=== PATIENT | male | born 1935 | race Caucasian/White ===

== ENCOUNTER 2018-04-09 04:31 | Emergency (ER) | payer OTHER, MEDICARE ==
[~2018-04-09] VITALS: Ht 172.7 cm; Wt 70.3 kg
[~2018-04-09 04:31] MED LIST: METANX; METF850T2 PO; SIMV5TAB53 PO
[2018-04-09 04:50] VITALS: BP_SYST 155
--- NOTE | 2018-04-09 04:50 | NUR ---
Pt placed to ER bed 05 via W/C, to gown and classroom monitor. Pt states that while using the restroom, he felt unsteady with generalized weakness. Pt states "it looked like the lights flickered for a bit." Pt states he got back into bed, then got up to take his B/P whick was 161/102. Pt states that he wants to get checked out.
--- NOTE | 2018-04-09 05:15 | NUR ---
Dr. Miner at bedside.
[2018-04-09] MEDS ORDERED: ASA81 PO (05:16)
[2018-04-09] MEDS ORDERED: METF-510 PO (05:16)
[2018-04-09] MEDS ORDERED: LEVO75TA7 PO (05:16)
[2018-04-09] MEDS ORDERED: SIMV10TA2 PO (05:16)
--- NOTE | 2018-04-09 05:35 | NUR ---
# 20 gauge angiocath placed to LAC. Use of asceptic technique. Opsite placed over site. Blood return noted. Blood for lab drawn from site. Flushed with 10 cc of normal saline. No evidence of infiltration noted. Patient tolerated well.
[2018-04-09] MEDS ORDERED: NACL 0.9% 1,000 ML IV ONE (05:45)
[2018-04-09 06:14] LABS: ANION GAP 4 (5-15); CALCIUM 9.8 mg/dL (8.4-11.0); CHLORIDE 105 mmol/L (98-107); GLUCOSE 160 mg/dL (70-99); POTASSIUM 4.1 mmol/L (3.5-5.1); SODIUM SERUM 138 mmol/L (136-145); UREA NITROGEN, BLOOD 18 mg/dL (8-21)
--- NOTE | 2018-04-09 06:20 | NUR ---
Pt to CT via stretcher.
[2018-04-09 06:24] LABS: BASOPHILS % (AUTO) 0.3 % (0.0-2.0); EOSINOPHILS # (AUTO) 0.3 K/uL (0.0-0.4); EOSINOPHILS % (AUTO) 4.3 % (0.0-4.0); LYMPHOCYTES % (AUTO) 17.2 % (20.5-51.5); MONOCYTES # (AUTO) 0.6 K/uL (0.0-1.0); MONOCYTES % (AUTO) 10.6 % (1.7-9.3); NEUTROPHILS % (AUTO) 67.6 % (40.0-70.0); RED CELL DISTRIBUTION WIDTH 13.8 % (9.0-15.0); WHITE BLOOD COUNT (AUTO) 5.9 K/uL (4.8-10.8)
[2018-04-09 06:29] LABS: ALANINE AMINOTRANSFERASE 23 U/L (12-78); ALBUMIN 3.6 g/dL (3.4-4.8); ASPARTATE AMINOTRANSFERASE 17 U/L (10-37); THYROID STIMULATING HORMONE 15.54 uIu/mL (0.36-3.74); TOTAL BILIRUBIN 0.6 mg/dL (0.0-1.0)
--- NOTE | 2018-04-09 06:40 | NUR ---
Pt returns from CT. Denies c/o pain or discomfort, no needs verbalized.
[2018-04-09 06:42] LABS: HEMATOCRIT 42.1 % (36-54); HEMOGLOBIN 13.4 g/dL (14.0-18.0); MEAN CORPUSCULAR VOLUME 88 fL (79.0-98.0); RED BLOOD CELL COUNT(AUTO) 4.79 MIL/uL (4.2-6.2)
[2018-04-09 06:43] LABS: MEAN CORPUSCULAR HEMOGLOBIN 28 pg (27-31); MEAN CORPUSCULAR HGB CONC 32 % (32-36); PLATELET COUNT (AUTO) 181 K/uL (130-430)
--- NOTE | 2018-04-09 07:21 | NUR ---
report given, patient resting in stable condition.
[2018-04-09 08:10] VITALS: BP_SYST 130
--- NOTE | 2018-04-09 08:10 | NUR ---
Patient given written and verbal discharge instructions and verbalizes understanding. ER MD discussed with patient the results and treatment provided. Patient in stable condition. ID arm band removed. IV catheter removed intact and dressing applied, no active bleeding. Rx of Synthroid 112mcg given. Patient educated on pain management and to follow up with PMD. Pain Scale 0/10. Opportunity for questions provided and answered. Medication side effect fact sheet provided.
== END 2018-04-09 08:10 | disposition home or self-care (01) ==
LOC: SED 04:31
DX: R53.1 Weakness (principal); E03.9 Hypothyroidism, unspecified; R26.89 Other abnormalities of gait and mobility; E11.9 Type 2 diabetes mellitus without complications; Z90.49 Acquired absence of other specified parts of digestive tract; Z79.82 Long term (current) use of aspirin; Z79.899 Other long term (current) drug therapy
CPT/HCPCS: 36415; 70450; 71045; 80053; 82550; 84443; 84484; 85025; 93005; 99284; J7030

== ENCOUNTER 2018-04-13 05:34 | Inpatient (IN) | payer OTHER, MEDICARE ==
[~2018-04-13] VITALS: Ht 172.7 cm; Wt 70.3 kg
[~2018-04-13 05:34] MED LIST changes: +ASA81 PO; +LEVO75TA7 PO; +METF-510 PO; +SIMV10TA2 PO
[2018-04-13 05:40] VITALS: BP_SYST 153
--- NOTE | 2018-04-13 05:50 | NUR ---
Placed in room 8 . Placed on school lunch monitor, blood pressure machine and pulse oximeter. To gown for exam. Side rails up. Report given to Kenny.
--- NOTE | 2018-04-13 05:50 | NUR ---
Pt placed on phototypesetting equipment monitor. Pt c/o dizziness upon awakening around 0330 this AM. Pt states that the room was spinning. Pt states that he is still dizzy, but not as bad as before. Denies c/o C/P or SOB.
[2018-04-13] MEDS ORDERED: CYAN50008 PO (05:51)
[2018-04-13] MEDS ORDERED: LEVO112T5 PO (05:51)
[2018-04-13] MEDS ORDERED: UBID50TA3 PO (05:51)
--- NOTE | 2018-04-13 05:55 | NUR ---
Medication reconciliation completed with information provided by patient. Any prior medication reconciliation on file was reviewed and corrected.
--- NOTE | 2018-04-13 06:00 | NUR ---
# 20 gauge angiocath placed to RFA. Use of asceptic technique. Opsite placed over site. Blood return noted. Blood for lab drawn from site. Flushed with 10 cc of normal saline. No evidence of infiltration noted. Patient tolerated well.
--- NOTE | 2018-04-13 06:10 | NUR ---
Dr. Vasquez at bedside.
[2018-04-13 06:43] LABS: BASOPHILS % (AUTO) 0.3 % (0.0-2.0); EOSINOPHILS # (AUTO) 0.3 K/uL (0.0-0.4); EOSINOPHILS % (AUTO) 4.2 % (0.0-4.0); HEMATOCRIT 45.2 % (36-54); HEMOGLOBIN 14.1 g/dL (14.0-18.0); LYMPHOCYTES # (AUTO) 0.9 K/uL (1.0-5.5); LYMPHOCYTES % (AUTO) 13.3 % (20.5-51.5); MEAN CORPUSCULAR HEMOGLOBIN 28 pg (27-31); MEAN CORPUSCULAR HGB CONC 31 % (32-36); MEAN CORPUSCULAR VOLUME 90 fL (79.0-98.0); MONOCYTES # (AUTO) 0.6 K/uL (0.0-1.0); MONOCYTES % (AUTO) 8.1 % (1.7-9.3); NEUTROPHILS # (AUTO) 5.3 K/uL (1.8-7.7); NEUTROPHILS % (AUTO) 74.1 % (40.0-70.0); RED BLOOD CELL COUNT(AUTO) 5.04 MIL/uL (4.2-6.2); RED CELL DISTRIBUTION WIDTH 13.9 % (9.0-15.0); WHITE BLOOD COUNT (AUTO) 7.1 K/uL (4.8-10.8)
[2018-04-13] MEDS ORDERED: MECLIZINE HCL 25 MG TABLET (ANITVERT) PO ONE (06:45)
--- NOTE | 2018-04-13 06:45 | NUR ---
X-ray at bedside.
[2018-04-13 06:50] LABS: ANION GAP 8 (5-15); CALCIUM 9.2 mg/dL (8.4-11.0); CHLORIDE 104 mmol/L (98-107); GLUCOSE 170 mg/dL (70-99); POTASSIUM 4.4 mmol/L (3.5-5.1); SODIUM SERUM 138 mmol/L (136-145); UREA NITROGEN, BLOOD 28 mg/dL (8-21)
[2018-04-13 07:02] LABS: BILIRUBIN,URINE NEGATIVE (NEGATIVE); BLOOD, URINE NEGATIVE (NEGATIVE); CLARITY/URINE CLEAR (CLEAR); COLOR,URINE YELLOW (YELLOW); GLUCOSE,URINE NEGATIVE (NEGATIVE); KETONES,URINE NEGATIVE (NEGATIVE); LEUKOCYTE ESTERASE ,URINE NEGATIVE (NEGATIVE); NITRITE, URINE NEGATIVE (NEGATIVE); PROTEIN URINE NEGATIVE (NEGATIVE); UROBILINOGEN,URINE 0.2 (0.2-1.0)
[2018-04-13 07:05] LABS: ALANINE AMINOTRANSFERASE 24 U/L (12-78); ALBUMIN 3.6 g/dL (3.4-4.8); ASPARTATE AMINOTRANSFERASE 25 U/L (10-37); FREE T4 (FREE THYROXINE) 1.3 ng/dl (0.8-1.5); THYROID STIMULATING HORMONE 10.21 uIu/mL (0.36-3.74); TOTAL BILIRUBIN 0.4 mg/dL (0.0-1.0)
--- NOTE | 2018-04-13 07:11 | NUR ---
Pt resting quietly, no needs verbalized, NAD. Report given to oncoming shift.
--- NOTE | 2018-04-13 07:30 | NUR ---
Assumed care. Pt AAOX4 no acute distress noted. Pt reports dizziness resolved at this time/ Pt gievn urinal.
[2018-04-13 07:52] LABS: PLATELET COUNT (AUTO) 193 K/uL (130-430)
--- NOTE | 2018-04-13 08:30 | NUR ---
Patient will be admitted to care of DR. GIVENS. Admitted to TELE unit. Will go to room 120A. Belongings list completed. Summary report printed. Report will be given at bedside.
--- NOTE | 2018-04-13 08:40 | NUR ---
ADMISSION NOTE Received patient from ER via romel, received report from CRISTINA MARROQUIN. Patient admitted with diagnosis of DIZZINESS. Patient oriented to hospital routine, call light, toileting and safety-patient verbalized understanding.
[2018-04-13 08:52] VITALS: BP_SYST 155
--- NOTE | 2018-04-13 09:30 | NUR ---
PT REORIENTED TO CALL LIGHT USE, PT STATED HE STILL FEELS DIZZY, DENIES ANY CHEST PAIN/ SOB. BED ALARM IN PLACE WITH BED IN THE LOWEST POSITION. FAMILY AT BEDSIDE.
[2018-04-13] MEDS ORDERED: DEXTROSE 50% JECT 50 ML DISP.SYRIN IVP PRN (13:45)
[2018-04-13 16:35] VITALS: BP_SYST 122
--- NOTE | 2018-04-13 18:05 | NUR ---
BLOOD SUGAR CHECKED 136, NO COVERAGE NEEDED PER MD SLIDING SCALE
--- NOTE | 2018-04-13 19:01 | NUR ---
CLOSING NOTE ALL NEEDS MET THROUGH SHIFT, WILL ENDORSE CARE TO [employer]IC[employer].
--- NOTE | 2018-04-13 19:10 | NUR ---
OPENING NOTE Received report from Marion. Patient resting in bed awake, alert, oriented x4. Breathing unlabored and even on room air. No signs of distress, no needs at this time. Fall and safety precautions in place. Bed in lowest position, brake on, alarm on, call light within reach. IV access saline locked. Will continue to monitor.
[2018-04-13 20:20] VITALS: BP_SYST 129
--- NOTE | 2018-04-13 21:27 | NUR ---
Patient resting in bed with eyes closed. Breathing unlabored and even on room air. No signs of distress, no needs at this time. Fall and safety precautions in place. Bed in lowest position, brake on, alarm on, call light within reach. Will continue to monitor.
[2018-04-13 23:20] VITALS: BP_SYST 126
[2018-04-14] VITALS (7 sets, daily range): BP systolic 107–139
[2018-04-14] MEDS: INSULIN REGULAR, HUMAN 100 UNITS/ML, 10 ML VIAL (novoLIN R) SUBCUT PRN ×2 (00:43→05:58)
--- NOTE | 2018-04-14 00:45 | NUR ---
Blood sugar 177. Administered 2 units of regular insulin per PRN insulin sliding scale.
[2018-04-14] MEDS: LEVOTHYROXINE SODIUM 0.112 MG TABLET PO SCH (05:53)
--- NOTE | 2018-04-14 05:59 | NUR ---
Med pass. Blood sugar 159. Administered 2 units of regular insulin SQ per PRN insulin sliding scale.
--- NOTE | 2018-04-14 07:26 | NUR ---
CLOSING NOTE Gave report to Meagan. Patient resting in bed awake, alert, oriented x4. Breathing unlabored and even on room air. No signs of distress, no needs at this time. Fall and safety precautions in place. Bed in lowest position, brake on, alarm on, call light within reach. Endorsed care to day shift nurse.
--- NOTE | 2018-04-14 07:27 | NUR ---
Opening Note: Patient laying in bed resting. Patient denies pain and discomfort. Breathing is even and unlabored on room air, no distress noted. IV patent and intact and saline locked. Safety precautions in place; bed in lowest position, wheels locked, side rails x3, bed alarm activated and call light within reach. No needs at this time. Will continue to monitor.
--- NOTE | 2018-04-14 08:00 | NUR ---
Nutrition Update Dedrick Scale 18 noted. Pt admitted for dizziness. Diet: 2 gm Na BMI: 23.6 kg/m2 RD to follow per nutrition care standards.
[2018-04-14] MEDS ORDERED: SIMVASTATIN 10 MG TABLET PO SCH ×2 (09:00→21:00)
[2018-04-14 10:27] LABS: CHOLESTEROL 122 mg/dL (<200); HDL CHOLESTEROL 56 mg/dL (>45); LDL CHOLESTEROL 53 mg/dL (<100); TRIGLYCERIDES 84 mg/dL (30-150)
--- NOTE | 2018-04-14 10:30 | NUR ---
Rounds: Patient off of floor in MRI.
--- NOTE | 2018-04-14 12:40 | NUR ---
Rounds: Patient laying in bed resting, daughter at bedside. No pain or discomfort noted. Breathing is even and unlabored with no distress noted. Morning medications tolerated well. Safety precautions in place and call light within reach. Will continue to monitor.
--- NOTE | 2018-04-14 14:00 | NUR ---
Rounds: Patient in bed resting, daughter at bedside. Will continue to monitor.
--- NOTE | 2018-04-14 14:25 | NUR ---
DC Plan: Spoke to Dr. Guzman regarding discharge plan. Made aware of MRI and MRA results. Per Dr. Guzman "Let's do the Carotid US and call me back with the results." Patient to go home today if US results no abnormalities.
--- NOTE | 2018-04-14 16:15 | NUR ---
Rounds: Patient in bed resting, family members at bedside. Patient denies pain and discomfort. Breathing is even and unlabored with no distress noted. Safety precautions in place and call light within reach. No needs at this time. Will continue to monitor.
--- NOTE | 2018-04-14 17:15 | NUR ---
Paging Dr. Guzman: Paging Dr. Guzman to inform him of [facility] US preliminary report. Awaiting callback.
--- NOTE | 2018-04-14 17:24 | NUR ---
Spoke to Dr. Guzman: Spoke to Dr. Guzman, made aware of US results. Orders received regarding inpatient status and neurology consult.
--- NOTE | 2018-04-14 17:53 | NUR ---
CONSULTATION PAGED/CALLED Reason for Consultation: DIZZINESS Person Who was Notified: SPOKE WITH CELESTINO FROM [employer] Consulting Physician: MIKIE GELLER Personal Finance Instructor Specialty: NEUROLOGY Ordering Physician:
--- NOTE | 2018-04-14 18:42 | NUR ---
Closing Note: Patient laying in bed resting. Patient denies pain and discomfort. Breathing is even and unlabored on room air, no distress noted. IV patent and intact and saline locked. Safety precautions in place; bed in lowest position, wheels locked, side rails x3, bed alarm activated and call light within reach. All needs met. Will endorse plan of care to NOC, nurse.
--- NOTE | 2018-04-14 19:10 | NUR ---
OPENING NOTE Received report from Meagan. Patient resting in bed awake, alert, oriented x4. Breathing unlabored and even on room air. No signs of distress, no needs at this time. Fall and safety precautions in place. Bed in lowest position, brake on, alarm on, call light within reach. Will continue to monitor.
--- NOTE | 2018-04-14 20:02 | NUR ---
Patient's daughter brought in more clothes/belongings for patient. Added items to patient's belongings list, printed 2 copies out, patient signed both. One copy to patient's daughter, one copy in chart.
--- NOTE | 2018-04-14 22:32 | NUR ---
Patient resting in bed awake, alert, oriented x4. Breathing unlabored and even on room air. No signs of distress, no needs at this time. Fall and safety precautions in place. Bed in lowest position, brake on, alarm on, call light within reach. Will continue to monitor.
--- NOTE | 2018-04-15 00:03 | NUR ---
Blood sugar 153. Administered 2 units of regular insulin per PRN insulin sliding scale. Assisted patient to the bathroom
--- NOTE | 2018-04-15 04:53 | NUR ---
Assisted patient to the bathroom.
[2018-04-15] MEDS: LEVOTHYROXINE SODIUM 0.112 MG TABLET PO SCH (06:11)
[2018-04-15] MEDS: INSULIN REGULAR, HUMAN 100 UNITS/ML, 10 ML VIAL (novoLIN R) SUBCUT PRN ×3 (06:12→12:13)
--- NOTE | 2018-04-15 06:13 | NUR ---
Med pass. Blood sugar 160. Administered 2 units of regular insulin SQ per PRN insulin sliding scale.
--- NOTE | 2018-04-15 06:56 | NUR ---
CLOSING NOTE Endorsed cares to day shift nurse. Patient resting in bed with eyes closed. Breathing unlabored and even on room air. No signs of distress, no needs at this time. Fall and safety precautions in place. Bed in lowest position, brake on, alarm on, call light within reach.
[2018-04-15 08:00] VITALS: BP_SYST 156
--- NOTE | 2018-04-15 08:00 | NUR ---
Opening Note Report received from [facility] shift nurse. Patient is currently sleeping in bed. No signs of distress noted. IV is on the RFA 20g, saline locked. US carotid results are still pending. Call light is within reach and bed is in low position. Will continue to monitor.
--- NOTE | 2018-04-15 10:21 | NUR ---
Rounds Patient is resting in bed no signs of distress noted. Call light is within reach.
--- NOTE | 2018-04-15 12:15 | NUR ---
Transition of Care Note Dr. Guzman cleared the patient for discharge. IV and ID band were removed. All transition of care instruction were provided to the patient and his daughter. Patient left the unit in stable condition.
[2018-04-15 12:31] VITALS: BP_SYST 156
[2018-04-15 12:39] VITALS: BP_SYST 125
--- NOTE | 2018-04-18 13:53 | NUR ---
Discharge Follow Up Phone Call MARKETING COMMUNICATIONS ASSISTANT phoned patient, . Patient stated he was doing much better. He has a follow up appointment scheduled with his PCP, Dr Johnathan Hatch, on 04/20/18. He is using his blood glucose monitor as directed. He was happy with his care at [facility]. Patient had no questions or concerns.
== END 2018-04-15 13:10 | disposition home or self-care (01) | DRG 149 ==
LOC: SED 05:34 → INTOOBSV 07:51 → STU 07:51 → OBSVTOIN 04-14 17:25
PROVIDERS: ADMIT Internal Medicine Hospice and Palliative Medicine; ATTEND Internal Medicine Hospice and Palliative Medicine
DX: R42 Dizziness and giddiness (principal); E11.9 Type 2 diabetes mellitus without complications; E89.0 Postprocedural hypothyroidism; I10 Essential (primary) hypertension; Z79.899 Other long term (current) drug therapy
CPT/HCPCS: 36415; 70450-TC; 70544; 70551; 71045; 80053; 80061; 81003; 82962; 83605; 83880; 84439; 84443-TC; 84484; 85025; 87040-TC; 87086; 93005; 93306; 93880; 99285; G0378; J1815; J8597

== ENCOUNTER 2022-04-17 11:48 | Emergency (ER) | payer OTHER, MEDICARE ==
[~2022-04-17] VITALS: Ht 172.7 cm; Wt 66.2 kg
[~2022-04-17 11:48] MED LIST changes: +CYAN50009 PO; +LEVO112T5 PO; -LEVO75TA7 PO; -METANX; -METF-510 PO; +METF-518 PO; -METF850T2 PO; +SIMV-341 PO; -SIMV10TA2 PO; -SIMV5TAB53 PO; +UBID50TA3 PO
[2022-04-17 11:50] VITALS: BP_SYST 129
--- NOTE | 2022-04-17 11:50 | NUR ---
Patient triaged. VSS and patient appears in no acute distress at this time. Accompanied by EMT'S, awaiting available bed, and MD notified of need for MSE.
--- NOTE | 2022-04-17 13:30 | NUR ---
ER DR. ZELAYA EXAMINING PT
--- NOTE | 2022-04-17 13:48 | NUR ---
Pt to radiology via wheel chair.
[2022-04-17 14:06] LABS: BASOPHILS % (AUTO) 0.6 % (0.0-2.0); EOSINOPHILS % (AUTO) 0.9 % (0.0-4.0); HEMATOCRIT 37.7 % (36-54); LYMPHOCYTES # (AUTO) 0.6 K/uL (1.0-5.5); LYMPHOCYTES % (AUTO) 14.8 % (20.5-51.5); MEAN CORPUSCULAR HEMOGLOBIN 28 pg (27-31); MEAN CORPUSCULAR HGB CONC 32 % (32-36); MEAN CORPUSCULAR VOLUME 89 fL (79.0-98.0); MONOCYTES # (AUTO) 0.6 K/uL (0.0-1.0); MONOCYTES % (AUTO) 16.5 % (1.7-9.3); NEUTROPHILS # (AUTO) 2.6 K/uL (1.8-7.7); NEUTROPHILS % (AUTO) 67.2 % (40.0-70.0); PLATELET COUNT (AUTO) 178 K/uL (130-430); RED BLOOD CELL COUNT(AUTO) 4.22 MIL/uL (4.2-6.2); RED CELL DISTRIBUTION WIDTH 14.4 % (9.0-15.0); WHITE BLOOD COUNT (AUTO) 3.8 K/uL (4.8-10.8)
[2022-04-17 14:25] LABS: ANION GAP 6 (5-15); CALCIUM 8.9 mg/dL (8.4-11.0); CHLORIDE 104 mmol/L (98-107); CREATININE 1.29 mg/dL (0.55-1.30); GLUCOSE 133 mg/dL (70-99); UREA NITROGEN, BLOOD 29 mg/dL (8-21)
[2022-04-17 14:33] LABS: ALANINE AMINOTRANSFERASE 27 U/L (12-78); ALBUMIN 3.2 g/dL (3.4-4.8); ASPARTATE AMINOTRANSFERASE 26 U/L (10-37); TOTAL BILIRUBIN 0.2 mg/dL (0.0-1.0)
[2022-04-17 15:06] VITALS: BP_SYST 122
--- NOTE | 2022-04-17 15:09 | NUR ---
Patient given written and verbal discharge instructions and verbalizes understanding. ER MD discussed with patient the results and treatment provided. Patient in stable condition. ID arm band removed. NO Rx given. Patient educated on pain management and to follow up with PMD. Pain Scale 0/10. Opportunity for questions provided and answered. Medication side effect fact sheet provided.
== END 2022-04-17 15:09 | disposition home or self-care (01) ==
LOC: SED 11:48
DX: S16.1XXA Strain of muscle, fascia and tendon at neck level, initial encounter (principal); S00.03XA Contusion of scalp, initial encounter; S30.0XXA Contusion of lower back and pelvis, initial encounter; E11.9 Type 2 diabetes mellitus without complications; R26.89 Other abnormalities of gait and mobility; Z79.899 Other long term (current) drug therapy; W01.198A Fall on same level from slipping, tripping and stumbling with subsequent striking against other object, initial encounter; Y93.89 Activity, other specified; Y92.89 Other specified places as the place of occurrence of the external cause; Y99.8 Other external cause status
CPT/HCPCS: 36415; 70450-TC; 71045; 72125-TC; 72192-TC; 76376; 80053; 82550; 83880; 84484; 85025; 93005; 99285